=== PATIENT | male | born 1960 | race Two or more races ===

== ENCOUNTER 2020-08-04 18:50 | Emergency (ER) | payer MEDICAID ==
[~2020-08-04] VITALS: Ht 170.2 cm; Wt 99.8 kg
[2020-08-04] MEDS ORDERED: ONDANSETRON HCL/PF 4 MG/2 ML VIAL IV ONE (19:30)
[2020-08-04] MEDS ORDERED: IV NS 0.9% 1,000 ML BAG IV ONE (19:30)
[2020-08-04] MEDS ORDERED: IBUPROFEN 600 MG TABLET PO ONE (19:30)
[2020-08-04] MEDS ORDERED: ONDANSETRON HCL/PF 4 MG/2 ML VIAL ONE (19:37)
[2020-08-04] MEDS ORDERED: IBUPROFEN 600 MG TABLET ONE (19:37)
--- NOTE | 2020-08-04 19:51 | NUR ---
BIBS FROM HOME TO ER BED 5. AAOX4. NOT IN RESP DISTRESS, BREATHING EVEN AND UNLABORED. AMBULATORY. CAME IN FOR R FLANK PAIN SINCE THURSDAY. PAIN IS 7/10. PT IS NOTED WITH TEMP OF 100.9. MD WAS AT THE BEDSIDE FOR EVAL. ORDERS RECEIVED NOTED AND CARRIED OUT. IV LINE STABLISHED ON L AC 18G. BLOOD DRAWN AND GIVEN TO HOOP COILER AT BEDSIDE.
[2020-08-04 19:56] LABS: BASOPHILS % (AUTO) 0.6 % (0.0-2.0); EOSINOPHILS % (AUTO) 0.1 % (0.0-6.0); HEMATOCRIT 44 % (39-51); HEMOGLOBIN 15.1 g/dL (13.5-17.5); LYMPHOCYTES # (AUTO) 1.2 /CMM (0.8-4.8); LYMPHOCYTES % (AUTO) 15.8 % (20.0-44.0); MEAN CORPUSCULAR HGB CONC 35 g/dl (31.0-36.0); MEAN CORPUSCULAR VOLUME 86 fL (80-96); MONOCYTES # (AUTO) 0.9 /CMM (0.1-1.30); MONOCYTES % (AUTO) 11.7 % (2.0-12.0); NEUTROPHILS # (AUTO) 5.6 /CMM (1.8-8.9); NEUTROPHILS % (AUTO) 71.8 % (43.0-81.0); PLATELET COUNT (AUTO) 147 /CMM (150-450); WHITE BLOOD COUNT (AUTO) 7.8 K/uL (4.3-11.0)
--- NOTE | 2020-08-04 20:02 | NUR ---
TO CT ON JESÚS
[2020-08-04 20:18] LABS: CALCIUM, SERUM 8.7 mg/dL (8.5-10.1); CREATININE 1.5 mg/dL (0.6-1.3); POTASSIUM 3.2 mmol/L (3.5-5.1)
[2020-08-04 20:24] LABS: ALBUMIN 3.8 g/dL (3.4-5.0); BILIRUBIN,DIRECT 0.3 mg/dL (0.0-0.2); BILIRUBIN,TOTAL 0.8 mg/dL (0.2-1.0); TOTAL PROTEIN, SERUM 7.5 g/dL (6.4-8.2)
--- NOTE | 2020-08-04 20:51 | NUR ---
URINE COLLECTED. SENT TO LAB
--- NOTE | 2020-08-04 20:56 | NUR ---
COVID SWAB DONE AND SENT TO LAB
--- NOTE | 2020-08-04 21:01 | NUR ---
DR. TROY PAGED PER ER ORDER.
--- NOTE | 2020-08-04 21:02 | NUR ---
ER TALKING TO DR. TROY REGARDING PT ADMISSION.
--- NOTE | 2020-08-04 21:24 | NUR ---
COVID NEGATIVE PER LAB
[2020-08-04 21:35] LABS: APPEARANCE,URINE CLEAR (CLEAR); BILIRUBIN,URINE NEGATIVE (NEGATIVE); BLOOD, URINE SMALL Ery/uL (NEGATIVE); COLOR,URINE YELLOW (YELLOW); KETONES,URINE 15 (NEGATIVE); LEUKOCYTE ESTERASE ,URINE NEGATIVE (NEGATIVE); NITRITE, URINE NEGATIVE (NEGATIVE); PROTEIN,URINE 30 mg/dl (NEGATIVE); UGLUCOSE >=1000 mg/dL (NEGATIVE)
[2020-08-04 21:46] LABS: BACTERIA,URINE None seen /HPF (None Seen); MUCUS,URINE Few /LPF (None Seen); SQUAMOUS EPITHELIAL CELL,UR Few /HPF (None Seen); WBC,URINE 0-2 /HPF (0-3)
--- NOTE | 2020-08-04 21:52 | NUR ---
Patient discharged to home in stable condition. Written and verbal after care instructions given. Patient verbalizes understanding of instruction.IV removed. Catheter intact and site benign. Pressure and 4x4 applied to site. No bleeding noted. Pt ambulatory with a steady gait
[2020-08-04 21:53] VITALS: BP 147/96
== END 2020-08-04 21:53 | disposition home or self-care (01) ==
LOC: ER 19:21
DX: R10.30 Lower abdominal pain, unspecified (principal); K80.20 Calculus of gallbladder without cholecystitis without obstruction; R50.9 Fever, unspecified; R00.0 Tachycardia, unspecified; Z20.828 Contact with and (suspected) exposure to other viral communicable diseases
CPT/HCPCS: 36415; 71045; 74176; 80048; 80076; 81001; 83690; 84484; 85025; 85730; 87426; 96361; 96374; 99285; C9803; J2405; J7030; 81000-TC

== ENCOUNTER 2020-08-10 18:09 | Emergency (ER) | payer MEDICAID, OTHER ==
[~2020-08-10] VITALS: Ht 175.3 cm; Wt 95.3 kg
--- NOTE | 2020-08-10 18:15 | NUR ---
FROM HOME, C/O GENERALIZED WEAKNESS, "DIFFICULTY CONCENTRATING" X 5 DAYS. , SENT BY DR RAMÍREZ FOR FURTHER EVAL/R/O STROKE. TO ER BED 9, HOOKED TO MATERIALS PLANNER/PRODUCTION PLANNER, BP CUFF AND POX, CHANGED TO HOSP GOWN, WARM BLANKET PROVIDED, PATIENT AAO x 4, BREATHING EVEN AND UNLABORED, NOT IN RESPIRATORY DISTRESS. AWAITING MD GALLAGHER.
--- NOTE | 2020-08-10 18:50 | NUR ---
KASSIE RAMIREZ AT BEDSIDE FOR EKG
[2020-08-10] MEDS ORDERED: IV NS 0.9% 500 ML BAG IV ONE (19:00)
[2020-08-10 19:17] LABS: BASOPHILS # (AUTO) 0.1 /CMM (0.0-0.2); EOSINOPHILS % (AUTO) 0.5 % (0.0-6.0); HEMATOCRIT 41 % (39-51); LYMPHOCYTES # (AUTO) 1.5 /CMM (0.8-4.8); LYMPHOCYTES % (AUTO) 17.9 % (20.0-44.0); MEAN CORPUSCULAR HGB CONC 34 g/dl (31.0-36.0); MEAN CORPUSCULAR VOLUME 86 fL (80-96); MONOCYTES # (AUTO) 0.7 /CMM (0.1-1.30); MONOCYTES % (AUTO) 8.1 % (2.0-12.0); NEUTROPHILS # (AUTO) 5.9 /CMM (1.8-8.9); NEUTROPHILS % (AUTO) 72.5 % (43.0-81.0); PLATELET COUNT (AUTO) 162 /CMM (150-450); RED BLOOD CELL COUNT(AUTO) 4.83 MIL/uL (4.5-6.0); WHITE BLOOD COUNT (AUTO) 8.2 K/uL (4.3-11.0)
--- NOTE | 2020-08-10 19:19 | NUR ---
PICKED UP BY MAINTENANCE SUPERINTENDENT VIA [facility] FOR CT SCAN.
--- NOTE | 2020-08-10 19:25 | NUR ---
CLINICALS AND MOVE PACKET TURNED IN.
--- NOTE | 2020-08-10 19:30 | NUR ---
REPORT GIVEN TO EMA GARZA FOR CHELSIE
[2020-08-10 19:35] LABS: ALANINE AMINOTRANSFERASE 32 U/L (12-78); ALBUMIN 3.5 g/dL (3.4-5.0); ALKALINE PHOSPHATASE 71 U/L (46-116); ASPARTATE AMINOTRANSFERASE 16 U/L (15-37); BILIRUBIN,DIRECT 0.2 mg/dL (0.0-0.2); BILIRUBIN,TOTAL 0.6 mg/dL (0.2-1.0); CALCIUM, SERUM 9.3 mg/dL (8.5-10.1); CARBON DIOXIDE 29 mmol/L (21-32); CHLORIDE 100 mmol/L (98-107); CREATININE 1.3 mg/dL (0.6-1.3); GLUCOSE 408 mg/dL (74-106); POTASSIUM 3.8 mmol/L (3.5-5.1); SODIUM SERUM 135 mmol/L (136-145); UREA NITROGEN, BLOOD 14 mg/dL (7-18)
--- NOTE | 2020-08-10 20:07 | NUR ---
covid swab sent
--- NOTE | 2020-08-10 21:09 | NUR ---
PT ACCEPTED BY DR KRAFT AT [facility], AWAITING BED ASSIGNMENT CRAFT DEMONSTRATOR GAVE AUTH FOR ALS TRANSPORT [id number]
[2020-08-10 21:43] LABS: APPEARANCE,URINE Clear (CLEAR); BILIRUBIN,URINE Negative (NEGATIVE); BLOOD, URINE Trace-intact Ery/uL (NEGATIVE); COLOR,URINE Yellow (YELLOW); KETONES,URINE Negative (NEGATIVE); LEUKOCYTE ESTERASE ,URINE Negative (NEGATIVE); NITRITE, URINE Negative (NEGATIVE); PROTEIN,URINE Negative (NEGATIVE); UGLUCOSE >=1000 mg/dL (NEGATIVE)
[2020-08-10 21:46] LABS: BACTERIA,URINE 1+ /HPF (None Seen); SQUAMOUS EPITHELIAL CELL,UR Few /HPF (None Seen)
--- NOTE | 2020-08-10 22:20 | NUR ---
FAXED CLINICALS AND FACESHEET TO GREG CRAWLEY OF [facility] [phone]
--- NOTE | 2020-08-10 23:00 | NUR ---
Nan justice in [facility] - 08/10/20 at 2325 by KANDIS CALLED [facility] ETA [phone]. DID NOT SET UP TRANSPORTATION
--- NOTE | 2020-08-10 23:17 | NUR ---
TRANSFER INFORMATION: PT WILL BE TRANSFERRED TO [facility] PER INSURANCE REQUEST ACCEPTING MD: DR. THOMAS NUMBER FOR REPORT: [phone] BED ASSIGNMENT 319 TELE AUTH FOR TRANSPORTATION: [id number] Addendum: 08/10/20 at 2318 by JDEFELIPWilfredo COPPER FLOTATION OPERATORAN/SSN 2 4 OPERATOR QUINN: [phone]
--- NOTE | 2020-08-10 23:20 | NUR ---
CALLED [facility] ETA 0700, DID NOT SET UP TRANSPORTATION
--- NOTE | 2020-08-10 23:23 | NUR ---
CALLED [facility], NO AVAILABLE [facility] FOR TRANSPORTATION ALL NIGHT.
--- NOTE | 2020-08-10 23:26 | NUR ---
ATTEMPTED TO CONTACT FUNDING SPECIALIST FOR TRANSPORATION. NO ANSWER. UNABLE TO LEAVE MESSAGE, MAILBOX FULL
--- NOTE | 2020-08-11 | NUR ---
CALLED [facility] [phone], STATES WILL CALL BACK ONCE FINISHED WITH ANOTHER CALL
--- NOTE | 2020-08-11 00:20 | NUR ---
SPOKE WITH CORPORATE COUNSELOR ELAYNE, WILL CALL BACK WITH TRANSPORTATION ETA
--- NOTE | 2020-08-11 01:16 | NUR ---
[facility] ETA 030
--- NOTE | 2020-08-11 02:30 | NUR ---
REPORT GIVEN TO JEISON RN FOR [facility]HEL[facility]E, NURSE AT [facility]; PER NURSE PT YOKASTA BE GOING TO ROOM 309
--- NOTE | 2020-08-11 03:00 | NUR ---
[facility] CALLED; NEW ETA: [phone]
--- NOTE | 2020-08-11 06:59 | NUR ---
[facility] CHARGE NURSE UPDATED WITH NEW ETA
--- NOTE | 2020-08-11 07:23 | NUR ---
REPORT GIVEN TO GREG OLIVERA FOR CHELSIE
--- NOTE | 2020-08-11 07:30 | NUR ---
Nan justice in [facility] - 08/11/20 at 0733 by BHAKTI RECEIVED REPORT FROM GREG AVILES FOR [facility]E. PT IS AAOX2, NOT IN RESPIRATORY DISTRESS, V/S STABLE, KEPT RESTED AND COMFORTABLE. WILL CONTINUE TO MONITOR.
--- NOTE | 2020-08-11 07:31 | NUR ---
RECEIVED REPORT FROM GREG AVILES FOR [facility]. PT IS AAOX3, NOT IN RESPIRATORY DISTRESS, V/S STABLE, KEPT RESTED AND COMFORTABLE. WILL CONTINUE TO MONITOR.
[2020-08-11 07:33] VITALS: BP 151/100
--- NOTE | 2020-08-11 07:59 | NUR ---
CALLED [facility] FOR TRANSPORT TO [facility]. ETA FOR ALS AMBULANCE [phone].
--- NOTE | 2020-08-11 08:13 | NUR ---
FOOD TRAY PROVIDED.
--- NOTE | 2020-08-11 08:38 | NUR ---
GAVE REPORT TO EMS FOR PT TRANSFER TO [facility] FOR CHELSIE.
== END 2020-08-11 08:44 | disposition short-term general hospital (02) ==
LOC: ER 18:16
DX: R41.0 Disorientation, unspecified (principal); R53.1 Weakness; G31.9 Degenerative disease of nervous system, unspecified; Z20.828 Contact with and (suspected) exposure to other viral communicable diseases; E78.1 Pure hyperglyceridemia
CPT/HCPCS: 36415; 70450; 71045; 80048; 80076; 81001; 82962; 84484; 85025; 87077; 87081; 87086; 87186; 87426; 93005; 96360; 99285; C9803; J7040; 81000-TC